=== PATIENT | male | born 1980 | race Caucasian/White ===

== ENCOUNTER 2021-06-15 10:13 | Emergency (ER) | payer SELFPAY ==
[2021-06-15 10:37] VITALS: BP 146/83; BP 157/98; PULSE 120; PULSE 150; RESP 17; TEMP 36.8; O2SAT 90; O2SAT 95; BMI 32.5
--- NOTE | 2021-06-15 11:11 | ED_ITS ---
HPI - Overdose General Chief Complaint: Overdose Stated Complaint: OD,NARCAN GIVEN W/GOOD RESULT Time Seen by Provider: 06/15/21 11:06 Source: patient and EMS Mode of arrival: EMS Limitations: no limitations History of Present Illness HPI Narrative: EMS initially called for patient to was stumbling. On their arrival he was unresponsive and they administered 2 mg of intranasal Narcan. Patient woke up after this. He states he did 1 bag of heroin last night. He states he has been clean for a long time but was down here visiting friends and did the bag. He does not feel like he needs help at this time for opioid use disorder. He lives in [place] and is planning on driving back home today. He denies any physical complaints. Related Data Previous Rx's Medication Instructions Recorded naloxone 4 mg/actuation nasal 4 mg INTRANASAL Q2M PRN #1 ea 06/15/21 spray (Narcan) Allergies Allergy/AdvReac Type Severity Reaction Status Date / Time No Known Allergies Allergy Verified 06/15/21 10:42 Review of Systems Constitutional: Constitutional: Denies fever(s) Cardiovascular: Cardiovascular: Denies chest pain and Denies dyspnea Respiratory: Respiratory: Denies dyspnea Gastrointestinal: Gastrointestinal: Denies nausea and Denies vomiting Comments: No diarrhea Neurologic: Comments: No weakness numbness or paresthesias PMFSH Social History Social History Advance Directives: No Advance Directives Information Provided: No Physical Exam Vital Signs: Vital Signs: Last Vital Signs Temp 98.3 F 06/15/21 10:37 Pulse 120 H 06/15/21 10:37 Resp 17 06/15/21 10:37 BP 157/98 H 06/15/21 10:37 Pulse Ox 95 06/15/21 10:37 Body Mass Index 32.5 Const: Other: Awake alert no acute distress HENMT: Other: Normocephalic atraumatic Eyes: Other: Pupils equal round reactive to light Resp: Other: Clear and equal bilaterally without wheezes rales or rhonchi Cardio: Other: Regular rate and rhythm. No murmurs rubs or gallops GI: Other: Soft nontender nondistended Skin: Other: Warm pink and dry Neuro: Other: Awake alert. No focal deficits Course Course Course Narrative: Opioid overdose Opioid use disorder Patient remained stable in the emergency department approximately 90 minutes post Narcan administration. He is awake and alert denying any acute complaints. There is no clinical evidence for opioid abstinence syndrome or withdrawal. He is stable for discharge home at this time Discharge Plan Discharge Clinical Impression: Opioid use disorder Drug overdose Qualifiers: Encounter type: initial encounter Injury intent: accidental or unintentional Qualified Code(s): T50.901A - Poisoning by unspecified drugs, medicaments and biological substances, accidental (unintentional), initial encounter Patient Disposition: Home, Self-Care Instructions: Adult Overdose (ED), Opioid Use Disorder (ED) Additional Instructions: Return if worse in any way Prescriptions: New Narcan 4 mg/actuation spray,non-aerosol 4 mg intranasal Q2M PRN (Reason: opioid overdose) Qty: 1 RF: 0
--- NOTE | 2021-06-15 11:15 | MHC.RECOVSUP ---
Recovery Support note: Patient is a 41 year old [place] speaking male who presented to [facility] after an accidental overdose. Patient admits to using heroin. This property underwriter met with patient to discuss his substance use and recovery. Patient reports he is doing really well and that he slipped up. Patient declined resources or the offer to have his substance use evaluated. Patient reports he was in the area to tour a [place] with a friend and that he had a lapse in judgment and used. Patient reports he is from [facility] and that he is heading back to that area. Patient reports he has a counselor who he sees several times a week in [place] and that he finds this very helpful. Patient reports no questions or concerns at this time.
[2021-06-15 11:26] VITALS: BP 146/92; PULSE 100; RESP 18; TEMP 36.6; O2SAT 95
--- NOTE | 2021-06-15 11:27 | PC.NURSE ---
patient a&ox3, vss, patient denies pain or discomfort, ready for discharge
== END 2021-06-15 12:31 | disposition home or self-care (01) ==
PROVIDERS: Emergency Provider Emergency Medicine
DX: T40.1X1A Poisoning by heroin, accidental (unintentional), initial encounter (principal); Y92.9 Unspecified place or not applicable
CPT/HCPCS: 99284